=== PATIENT | male | born 1975 | race Caucasian/White ===

== ENCOUNTER 2019-01-07 16:28 | Emergency (ER) | payer SELFPAY ==
[~2019-01-07] VITALS: Ht 172.7 cm; Wt 83.2 kg
[2019-01-07 16:38] VITALS: BP 121/75; PULSE 96; RESP 20; Ht 172.7 cm; Wt 83.2 kg
[2019-01-07] MEDS ORDERED: FLUORESCEIN STRIP LEFT EYE ONE (17:00)
[2019-01-07] MEDS ORDERED: DIPHTH/TET/ACEL PERTUSS (ADULT) 0.5 ML VIAL IM* ONE (17:00)
[2019-01-07] MEDS ORDERED: ERYT1OIN6 LEFT EYE (17:27)
[2019-01-07] MEDS ORDERED: ACET1TAB40 PO (17:27)
[2019-01-07] MEDS ORDERED: IBUP-1542 PO (17:27)
--- NOTE | 2019-01-07 17:31 | ERD ---
ER Documentation Chief Complaint Chief Complaint left eye pain and redness after exposed to ceramic debris yesterday HPI 43-year-old male was cutting ceramic on a facing grinder yesterday. He has sudden onset of pain in his left eye. He was not wearing goggles. Tetanus not up-to-date. Denies any visual deficits, visual changes. He has pain and redness of the left eye. Feels possible foreign body sensation centrally on the left eye. ROS All systems reviewed and are negative except as per history of present illness. Medications Home Meds Active Scripts Erythromycin Base (Erythromycin) 1 Gm Oint...g., 1 APPLIC LEFT EYE QID for 7 Days Prov:KINZA RODRIGUEZ MD 01/07/19 Ibuprofen* (Motrin*) 600 Mg Tab, 600 MG PO Q6, #20 TAB Prov:KINZA RODRIGUEZ MD 01/07/19 Acetaminophen with Codeine (Acetaminophen-Cod #3 Tablet) 1 Each Tablet, 1 TAB PO Q6H PRN for PAIN, #7 TAB Prov:KINZA RODRIGUEZ MD 01/07/19 FmHx Family History: No diabetes, No coronary disease, No other Physical Exam Vitals Vital Signs Date Temp Pulse Resp B/P (MAP) Pulse Ox O2 O2 Flow FiO2 Time Delivery Rate 01/07/19 97.7 96 20 121/75 96 16:38 (90) Physical Exam Const: No acute distress Head: Atraumatic Eyes: Mild scleral redness. No appreciated foreign body on slit-lamp exam. No floor seen uptake except for possibly mildly symptomatic coronary. Negative Kya sign. Visual acuity shows no significant acute abnormalities. ENT: Normal External Ears, Nose and Mouth. Neck: Full range of motion. No meningismus. Resp: Clear to auscultation bilaterally Cardio: Regular rate and rhythm, no murmurs Abd: Soft, non tender, non distended. Normal bowel sounds Skin: No petechiae or rashes Back: No midline or flank tenderness Ext: No cyanosis, or edema Neur: Awake and alert Psych: Normal Mood and Affect Results 24 hrs Current Medications Medications Dose Sig/Bigg Start Time Status Last (Trade) Ordered Route PRN Stop Time Admin Dose Reason Admin Diphtheria/ 0.5 ml ONCE ONCE 01/07/19 DC 01/07/19 Tetanus/Acell IM* 17:00 01/07/19 17:05 Pertussis 17:01 (Adacel) Fluorescein 1 strip ONCE ONCE 01/07/19 DC Sodium LEFT EYE 17:00 01/07/19 (Dosex-L-Weyc 17:01 p) Procedures/MDM Resents with left eye pain after cutting ceramic tile with a facing grinder yesterday. He was given a tetanus booster. Patient has no current signs or symptoms of identified foreign body. He may have a small superficial abrasion. There is no signs or symptoms to suggest globe rupture. He will be discharged home with medication for pain, erythromycin ointment and recommendations for ophthalmology follow-up and return precautions for visual changes, fevers, new worsening swelling, additional new signs or symptoms. The patient was stable with no new complaints during the ER course. Clinically, there is no current evidence to suggest meningitis, sepsis, acute abdomen, pneumonia, stroke, acute coronary syndrome, pulmonary embolism, aortic dissection or any other emergent condition appearing to require further evaluation or hospitalization. Patient counseled regarding my diagnostic impression and care plan. Prior to discharge all questions answered. Pt agrees with treatment plan and understands strict return precautions. Pt is instructed to follow up with primary care provider within 24- 48 hours. Precautionary instructions provided including instructions to return to the ER if not improving or for any worsening or changing symptoms or concerns. Departure Diagnosis: Primary Impression: Eye injury Encounter type: initial encounter Laterality: left Qualified Codes: S05.92XA - Unspecified injury of left eye and orbit, initial encounter Condition: Stable Patient Instructions: Corneal Injury Referrals: [facility] Hours: Mon - Fri 9:00 AM - 5:00 PM Additional Instructions: No foreign body seen. See ophthalmology for persistent pain. Recheck for worsening redness, visual changes, new worsening symptoms. Va al yadav doctor/ specialista para mas evaluacon en el proximo semana. posiblemente necesita autorizado de yadav doctor primario para specialista. Regresa para fiebre, o mas o nueva simptomas. KINZA RODRIGUEZ MD Jan 07, 2019 17:31
== END 2019-01-07 17:40 | disposition home or self-care (01) ==
LOC: FTE 16:28
DX: S05.92XA Unspecified injury of left eye and orbit, initial encounter (principal); X58.XXXA Exposure to other specified factors, initial encounter; Y92.9 Unspecified place or not applicable; Z23 Encounter for immunization
CPT/HCPCS: 90471; 90715